=== PATIENT | male | born 1990 | race Caucasian/White ===

== ENCOUNTER 2020-11-05 18:14 | Emergency (ER) | payer OTHER ==
[~2020-11-05] VITALS: Ht 180.3 cm; Wt 91.2 kg
[2020-11-05 18:28] VITALS: BP 145/87
--- NOTE | 2020-11-05 18:54 | NUR ---
30 YO M BIB SELF FOR C/C OF SHARP 7/10 R SIDED LOWER BACK PAIN AFTER PLAYING DISC GOLF AT 0830 THIS MORNING. PT STATES HE WAS BENDING DOWN WHEN THE PAIN BEGAN. PT REPORTS NAUSEA AND NUMBNESS TINGELING IN BUE AND BLE AT 1700 THAT HAS SINCE RESOLVED. PT TOOK 500MG OF TYLENOL WITH LITTLE RELIEF. PT SITTING ON SIDE OF BED, HESITENT TO LAY DOWN. MED HX: DENIES NO RX
--- NOTE | 2020-11-05 19:09 | NUR ---
REPORT RECIEVED FROM APRYL FERGUSON FOR CHANGE OF SHIFT.
[2020-11-05] MEDS ORDERED: diazePAM 5 MG TAB PO ONE (19:15)
[2020-11-05] MEDS ORDERED: KETOROLAC 30 MG/ML VIAL IM ONE (19:15)
--- NOTE | 2020-11-05 19:40 | NUR ---
PATIENT TAKEN TO XRAY.
[2020-11-05] MEDS ORDERED: MORPHINE SULFATE 4 MG/ML SYR IM ONE (20:05)
--- NOTE | 2020-11-05 20:27 | NUR ---
PATIENT TAKEN TO SCAN VIA W.C.
--- NOTE | 2020-11-05 20:38 | NUR ---
PT RETURNED FROM CT VIA W/C
[2020-11-05] MEDS ORDERED: NAPR-54 PO (22:17)
[2020-11-05] MEDS ORDERED: DIAZ5TAB7 PO (22:17)
[2020-11-05] MEDS ORDERED: LID5T TP (22:17)
[2020-11-05 22:30] VITALS: BP 132/80
--- NOTE | 2020-11-05 22:30 | NUR ---
Patient discharged with v/s stable. Written and verbal after care instructions given and explained. Patient alert, oriented and verbalized understanding of instructions. Ambulatory with steady gait. All questions addressed prior to discharge. ID band removed. Patient advised to follow up with PMD. Rx of DIAZEPAM, LIDOCAINE HYD, NAPROXEN given. Patient educated on indication of medication including possible reaction and side effects. Opportunity to ask questions provided and answered.
== END 2020-11-05 22:30 | disposition home or self-care (01) ==
LOC: MED 18:14
DX: S39.012A Strain of muscle, fascia and tendon of lower back, initial encounter (principal); R11.0 Nausea; R42 Dizziness and giddiness; X58.XXXA Exposure to other specified factors, initial encounter; Y93.89 Activity, other specified; Y92.89 Other specified places as the place of occurrence of the external cause; Y99.8 Other external cause status
CPT/HCPCS: 72100; 72131; 96372; 99284; J1885; J2270